=== PATIENT | female | born 1965 | race Caucasian/White ===

== ENCOUNTER 2020-06-20 15:02 | Outpatient (CLI) | payer OTHER, SELFPAY ==
--- NOTE | 2020-06-20 15:08 | MM_ITS ---
WS: [id number] BILATERAL DIGITAL SCREENING MAMMOGRAPHY WITH CAD CLINICAL INFORMATION: SCREENING HISTORY: Screening mammogram. No current complaints. COMPARISON: TECHNIQUE: Bilateral CC and MLO views. FINDINGS: The breasts are composed of heterogeneous fibroglandular density tissue, which can limit the detectio n of small underlying mass lesions. No suspicious mass, asymmetry, calcifications, or architectural d istortion. No evidence of malignancy. MM/[place] [id number] IMPRESSION: BI-RADS: 1-Negative FOLLOW UP: 1 Year Follow-up Recommend return to annual screening mammography.
== END 2020-06-20 15:03 | disposition home or self-care (01) ==
LOC: RADSHAW 15:07
PROVIDERS: PCP Family Medicine; Visit Provider Family Medicine
DX: Z12.31 Encounter for screening mammogram for malignant neoplasm of breast (principal)
CPT/HCPCS: 77067

== ENCOUNTER 2021-03-31 07:50 | Outpatient (CLI) | payer OTHER, SELFPAY ==
--- NOTE | 2021-03-31 08:00 | MR_ITS ---
WS: [id number] MRI LEFT SHOULDER NONCONTRAST TECHNIQUE: Sagittal T2, coronal T1, T2 and proton density imaging. Axial gradient PDE imaging. CLINICAL INFORMATION: ROTATOR CUFF TENDINITIS COMPARISON: None. 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 Slight downsloping of the acromion with subacromial spurring. Mild narrowing of the subacromial space with impingement on the distal suprasp inatus. Mild tendinopathy in the distal supraspinatus. Normal infraspinatus. Normal teres minor. Norm al subscapularis. Normal biceps tendon in the bicipital groove. T2 signal normality with thickening involving the intra -articular biceps tendon consistent with tendinitis. Glenoid labrum appears grossly normal. Normal bone marrow signal in glenoid and humerus. MR/MR shoulder LT wo con* [id number] IMPRESSION: 1. Mild degenerative arthritis at the AC joint with mild downsloping acromion. Slight subacromial spurring with impingement on the distal supraspinatus. 2. Tendinopathy within the distal supraspinatus. 3. Rotator cuff is otherwise intact. 4. Normal biceps tendon in the bicipital groove. 5. Thickening with T2 signal abnormality involving the intra-articular biceps tendon compatible with tendinitis. 6. Glenoid labrum appears grossly normal.
== END 2021-03-31 07:51 | disposition home or self-care (01) ==
PROVIDERS: PCP Family Medicine; Visit Provider Orthopaedic Surgery
DX: M75.82 Other shoulder lesions, left shoulder (principal); M19.012 Primary osteoarthritis, left shoulder
CPT/HCPCS: 73221

== ENCOUNTER 2021-04-09 12:00 | Outpatient (CLI) | payer OTHER, SELFPAY | END 2021-04-09 12:01 | disposition home or self-care (01) | LOC: SLEEP 04-10 08:36 | PROVIDERS: PCP Family Medicine; Visit Provider Family Medicine | DX: G47.10 Hypersomnia, unspecified (principal) | CPT/HCPCS: G0399 ==

== ENCOUNTER 2021-05-13 06:00 | Outpatient (RCR) | payer OTHER, SELFPAY | END 2021-05-18 23:59 | disposition home or self-care (01) | LOC: SPT 06:00 | PROVIDERS: PCP Family Medicine; Referring Provider Orthopaedic Surgery; Visit Provider Orthopaedic Surgery | DX: M75.82 Other shoulder lesions, left shoulder (principal) | CPT/HCPCS: 97110; 97140; 97161 ==

== ENCOUNTER 2021-05-19 06:00 | Outpatient (RCR) | payer OTHER, SELFPAY | END 2021-06-17 23:59 | disposition home or self-care (01) | LOC: SPT 06:00 | PROVIDERS: PCP Family Medicine; Referring Provider Orthopaedic Surgery; Visit Provider Orthopaedic Surgery | DX: M75.82 Other shoulder lesions, left shoulder (principal) | CPT/HCPCS: 97110; 97140 ==

== ENCOUNTER 2021-06-18 06:00 | Outpatient (RCR) | payer OTHER, SELFPAY | END 2021-07-18 23:59 | disposition home or self-care (01) | LOC: SPT 06:00 | PROVIDERS: PCP Family Medicine; Referring Provider Orthopaedic Surgery; Visit Provider Orthopaedic Surgery | DX: M75.82 Other shoulder lesions, left shoulder (principal) | CPT/HCPCS: 97110; 97140 ==

== ENCOUNTER 2021-08-01 20:00 | Outpatient (CLI) | payer OTHER, SELFPAY | END 2021-08-01 20:01 | disposition home or self-care (01) | LOC: SLEEP 08-04 08:09 | PROVIDERS: PCP Family Medicine; Visit Provider Family Medicine | DX: G47.33 Obstructive sleep apnea (adult) (pediatric) (principal) | CPT/HCPCS: 95811 ==

== ENCOUNTER 2025-03-14 08:02 | Outpatient (CLI) | payer BC, SELFPAY ==
--- NOTE | 2025-03-14 | MM_ITS ---
WS: [id number] VIEWS: MLO and CC views both breasts. 3D digital tomosynthesis is also included in this exam. Comparison made with prior exam of 01/02/2010, 04/22/2015, 05/01/2016, 05/26/2017, 11/11/2018, 06/20/2020.. Findings: The breasts are heterogeneously dense, which may obscure small masses. No suspicious mass, tumor calcification or architectural distortion. MM/MM scr BI tomosynthesis [id number] Impression: BI-RADS: 2 - Benign FOLLOW-UP: 1 Year Follow-up This mammogram was also analyzed by the Computer A[employer] Detection System [employer] Im[employer] e Enrollment Eligibility Representative.
== END 2025-03-14 08:03 | disposition home or self-care (01) ==
LOC: RAD 08:05
PROVIDERS: PCP Family Medicine; Visit Provider Family Medicine
DX: Z12.31 Encounter for screening mammogram for malignant neoplasm of breast (principal); R92.333 Mammographic heterogeneous density, bilateral breasts
CPT/HCPCS: 77063; 77067